=== PATIENT | female | born 1950 | race Caucasian/White ===

== ENCOUNTER 2017-04-05 07:45 | Emergency (ER) | payer OTHER ==
[~2017-04-05] VITALS: Ht 154.9 cm; Wt 81.6 kg
[2017-04-05 07:49] VITALS: BP_SYST 140
[2017-04-05] MEDS ORDERED: KETOROLAC TROMETHAMINE 60 MG/2 ML VIAL IM ONE (08:30)
[2017-04-05] MEDS ORDERED: ONDANSETRON 4 MG ODT TAB PO ONE (09:30)
[2017-04-05] MEDS ORDERED: HYDROmorphone 1 MG INJ. 1 MG/ML AMPUL IM ONE (09:30)
[2017-04-05 10:59] VITALS: BP_SYST 135
== END 2017-04-05 10:49 | disposition home or self-care (01) ==
LOC: SED 07:45
DX: R51 Headache (principal)
CPT/HCPCS: 70450; 96372; 99284; J1170; J1885; Q0162